=== PATIENT | female | born 1940 | race Native Hawaiian/Other Pacific Islander ===

== ENCOUNTER 2016-08-26 09:23 | Outpatient (CLI) | payer OTHER, MEDICARE | END 2016-08-26 19:37 | disposition home or self-care (01) | LOC: MAMMO 09:23 | DX: Z12.31 Encounter for screening mammogram for malignant neoplasm of breast (principal) | CPT/HCPCS: G0202-TC ==

== ENCOUNTER 2017-02-23 10:49 | Outpatient (CLI) | payer OTHER, MEDICARE | END 2017-02-23 11:50 | disposition home or self-care (01) | LOC: RAD 10:49 | DX: R05 Cough (principal); R06.02 Shortness of breath; J00 Acute nasopharyngitis [common cold] ==

== ENCOUNTER 2017-05-04 07:50 | Outpatient (CLI) | payer OTHER, MEDICARE | END 2017-05-04 19:06 | disposition home or self-care (01) | LOC: NM 07:50 | DX: R07.89 Other chest pain (principal) | CPT/HCPCS: A9500; J2785 ==

== ENCOUNTER 2017-10-18 11:16 | Outpatient (CLI) | payer OTHER, MEDICARE ==
[2017-10-18 11:49] LABS: PLATELET COUNT 295 K/uL (152-353)
[2017-10-18 11:53] LABS: POTASSIUM 3.6 mmol/L (3.6-5.2)
== END 2017-10-18 21:23 | disposition home or self-care (01) ==
LOC: LABW 11:16
PROVIDERS: Nurse Practitioner Family
DX: R06.02 Shortness of breath (principal); R09.02 Hypoxemia; R53.83 Other fatigue
CPT/HCPCS: 36415; 80053; 82607; 82746; 84443; 85027; Q9963

== ENCOUNTER 2017-11-10 08:46 | Outpatient (CLI) | payer OTHER, MEDICARE | END 2017-11-10 21:42 | disposition home or self-care (01) | LOC: MAMMO 08:46 | DX: Z12.31 Encounter for screening mammogram for malignant neoplasm of breast (principal) ==

== ENCOUNTER 2018-06-22 10:40 | Outpatient (CLI) | payer OTHER, MEDICARE | END 2018-06-22 19:28 | disposition home or self-care (01) | LOC: RAD 10:40 | DX: J40 Bronchitis, not specified as acute or chronic (principal); R05 Cough ==

== ENCOUNTER 2018-06-27 10:21 | Outpatient (CLI) | payer OTHER, MEDICARE | END 2018-06-27 22:11 | disposition home or self-care (01) | LOC: RAD 10:21 | DX: J18.9 Pneumonia, unspecified organism (principal) ==

== ENCOUNTER 2018-07-07 11:28 | Outpatient (CLI) | payer OTHER, MEDICARE | END 2018-07-07 23:30 | disposition home or self-care (01) | LOC: LABW 11:28 | DX: R06.02 Shortness of breath (principal); R06.2 Wheezing; J18.9 Pneumonia, unspecified organism; R05 Cough; J20.9 Acute bronchitis, unspecified; I10 Essential (primary) hypertension; R53.83 Other fatigue | CPT/HCPCS: 87070; 87205 ==

== ENCOUNTER 2018-12-13 10:38 | Outpatient (CLI) | payer OTHER, MEDICARE | END 2018-12-13 20:00 | disposition home or self-care (01) | LOC: RAD 10:38 | DX: M54.6 Pain in thoracic spine (principal); M54.5 Low back pain ==

== ENCOUNTER 2019-01-13 09:03 | Outpatient (CLI) | payer OTHER, MEDICARE | END 2019-01-13 23:41 | disposition home or self-care (01) | LOC: MAMMO 09:03 | DX: Z12.31 Encounter for screening mammogram for malignant neoplasm of breast (principal) ==

== ENCOUNTER 2019-07-05 08:21 | Outpatient (CLI) | payer OTHER, MEDICARE | END 2019-07-05 20:18 | disposition home or self-care (01) | LOC: US 08:21 | DX: N17.8 Other acute kidney failure (principal); I10 Essential (primary) hypertension ==

== ENCOUNTER 2019-08-07 15:20 | Outpatient (CLI) | payer OTHER, MEDICARE | END 2019-08-07 19:17 | disposition home or self-care (01) | LOC: RAD 15:20 | DX: R05 Cough (principal); R06.02 Shortness of breath; R06.2 Wheezing; J20.9 Acute bronchitis, unspecified ==

== ENCOUNTER 2019-08-21 08:39 | Outpatient (CLI) | payer OTHER, MEDICARE ==
[2019-08-21 09:24] LABS: PLATELET COUNT 366 K/uL (152-353)
== END 2019-08-21 22:46 | disposition home or self-care (01) ==
LOC: LABW 08:39
PROVIDERS: Internal Medicine
DX: N18.3 Chronic kidney disease, stage 3 (moderate) (principal)
CPT/HCPCS: 36415; 80048; 81000; 82040; 82570; 83883; 84100; 84155; 84550; 85027; 86038

== ENCOUNTER 2020-01-16 08:51 | Outpatient (CLI) | payer OTHER, MEDICARE | END 2020-01-16 20:44 | disposition home or self-care (01) | LOC: MAMMO 08:51 | DX: Z12.31 Encounter for screening mammogram for malignant neoplasm of breast (principal) ==

== ENCOUNTER 2020-06-07 18:23 | Emergency (ER) | payer OTHER, MEDICARE ==
[~2020-06-07] VITALS: Ht 157.5 cm; Wt 72.6 kg
[2020-06-07 21:40] LABS: PLATELET COUNT 303 K/uL (152-353)
[2020-06-07 21:46] LABS: POTASSIUM 4.6 mmol/L (3.6-5.2)
[2020-06-07 23:45] VITALS: BP 157/70; TEMP 98.7
== END 2020-06-07 23:45 | disposition home or self-care (01) ==
LOC: ED 18:23
PROVIDERS: Family Medicine
DX: U07.1 COVID-19 (principal); R05 Cough
CPT/HCPCS: 80053; 85027; 87502; 87635; 87651; 99283; U0003

== ENCOUNTER 2020-06-14 09:09 | Inpatient (IN) | payer OTHER, MEDICARE ==
[~2020-06-14] VITALS: Ht 157.5 cm; Wt 70.8 kg
[2020-06-14] VITALS (19 sets, daily range): BP systolic 95–143; BP diastolic 34–88; TEMP 97.1–99.3; Ht 157.5 cm; Wt 70.8 kg
[2020-06-14 11:09] LABS: PLATELET COUNT 268 K/uL (152-353)
[2020-06-14 11:41] LABS: POTASSIUM 3.4 mmol/L (3.6-5.2); SODIUM 129 mmol/L (136-145)
[2020-06-15] VITALS: BP 136/77; TEMP 98.5
[2020-06-15] MEDS ORDERED: ELIQUIS5 MG PO (02:06)
[2020-06-15 04:00] VITALS: BP 116/65; TEMP 99.3
[2020-06-15 06:00] LABS: PLATELET COUNT 265 K/uL (152-353)
[2020-06-15 06:46] LABS: POTASSIUM 3.9 mmol/L (3.6-5.2)
[2020-06-15 08:00] VITALS: BP 124/68; TEMP 99.1
[2020-06-15 16:00] VITALS: BP 123/63; TEMP 99.3
[2020-06-15 20:00] VITALS: BP 124/65; TEMP 99.4
[2020-06-15 23:56] VITALS: BP 129/69; TEMP 99.7
[2020-06-16] MEDS ORDERED: METOPROLOL25 M1 PO (03:51)
[2020-06-16] MEDS ORDERED: SIMV20TA2 PO (03:51)
[2020-06-16] MEDS ORDERED: ALPR0.5T24 PO (03:52)
[2020-06-16] MEDS ORDERED: BREO ELLIPTA 101 INH PO (03:52)
[2020-06-16] MEDS ORDERED: AMLO2.5T PO (03:53)
[2020-06-16] MEDS ORDERED: CYCLOBENZAPRINE5 MG PO (03:54)
[2020-06-16 04:00] VITALS: BP 132/73; TEMP 98.8
[2020-06-16 06:02] LABS: PLATELET COUNT 287 K/uL (152-353)
[2020-06-16 06:17] LABS: POTASSIUM 4.2 mmol/L (3.6-5.2)
[2020-06-16 08:00] VITALS: BP 131/55; TEMP 99.1
[2020-06-16 12:00] VITALS: BP 132/71; TEMP 99
[2020-06-16 16:00] VITALS: BP 137/67; BP 160/82; TEMP 98.6
[2020-06-16] MEDS ORDERED: OMEPRAZOLE40 MG PO (17:03)
[2020-06-16 20:00] VITALS: BP 183/87; TEMP 98.6
[2020-06-17] VITALS (7 sets, daily range): BP systolic 110–164; BP diastolic 54–77; TEMP 97.9–98.6
[2020-06-17] MEDS ORDERED: LISITAB PO (05:41)
[2020-06-17 06:51] LABS: PLATELET COUNT 304 K/uL (152-353)
[2020-06-17 07:23] LABS: POTASSIUM 4.1 mmol/L (3.6-5.2)
[2020-06-18] VITALS (60 sets, daily range): BP systolic 64–206; BP diastolic 36–109; TEMP 96.8–101
[2020-06-18 07:01] LABS: POTASSIUM 4.3 mmol/L (3.6-5.2)
[2020-06-18 07:16] LABS: PLATELET COUNT 181 K/uL (152-353)
[2020-06-19] VITALS (23 sets, daily range): BP systolic 111–158; BP diastolic 47–88; TEMP 96.8–98.3
[2020-06-19 07:05] LABS: PLATELET COUNT 105 K/uL (152-353)
[2020-06-19 07:18] LABS: POTASSIUM 3.6 mmol/L (3.6-5.2)
[2020-06-20] VITALS (22 sets, daily range): BP systolic 123–165; BP diastolic 59–92; TEMP 97–98.8
[2020-06-20 05:27] LABS: PLATELET COUNT 179 K/uL (152-353)
[2020-06-20 06:07] LABS: POTASSIUM 3.6 mmol/L (3.6-5.2)
[2020-06-21] VITALS (32 sets, daily range): BP systolic 11–150; BP diastolic 53–92; TEMP 98–100
[2020-06-21 05:53] LABS: PLATELET COUNT 244 K/uL (152-353)
[2020-06-21 06:09] LABS: POTASSIUM 3.3 mmol/L (3.6-5.2)
[2020-06-22] VITALS (25 sets, daily range): BP systolic 84–150; BP diastolic 56–69; TEMP 97.4–100.6
[2020-06-22 05:29] LABS: PLATELET COUNT 237 K/uL (152-353)
[2020-06-22 06:36] LABS: POTASSIUM 4.8 mmol/L (3.6-5.2)
[2020-06-23] VITALS (24 sets, daily range): BP systolic 13–111; BP diastolic 40–109; TEMP 98.1–99.5
[2020-06-23 06:15] LABS: PLATELET COUNT 231 K/uL (152-353)
[2020-06-23 07:05] LABS: POTASSIUM 4.9 mmol/L (3.6-5.2)
[2020-06-24] VITALS (38 sets, daily range): BP systolic 88–977; BP diastolic 22–65; TEMP 97.8–100.2
[2020-06-24 06:47] LABS: POTASSIUM 5.3 mmol/L (3.6-5.2)
[2020-06-24 07:08] LABS: PLATELET COUNT 165 K/uL (152-353)
[2020-06-25] VITALS (77 sets, daily range): BP systolic 113–180; BP diastolic 41–79; TEMP 97.6–99.2
[2020-06-25 06:21] LABS: PLATELET COUNT 257 K/uL (152-353)
[2020-06-25 06:23] LABS: POTASSIUM 4.5 mmol/L (3.6-5.2)
[2020-06-26] VITALS (23 sets, daily range): BP systolic 105–150; BP diastolic 47–71; TEMP 97.8–99.1
[2020-06-26 05:41] LABS: PLATELET COUNT 149 K/uL (152-353)
[2020-06-26 06:06] LABS: POTASSIUM 5.2 mmol/L (3.6-5.2)
[2020-06-26 10:08] LABS: PLATELET COUNT 117 K/uL (152-353)
[2020-06-26 15:23] LABS: PLATELET COUNT 154 K/uL (152-353)
[2020-06-27] VITALS (24 sets, daily range): BP systolic 121–152; BP diastolic 50–601; TEMP 97.6–99.1
[2020-06-27 03:43] LABS: PLATELET COUNT 138 K/uL (152-353)
[2020-06-27 03:49] LABS: POTASSIUM 5.4 mmol/L (3.6-5.2)
[2020-06-28] VITALS (23 sets, daily range): BP systolic 125–180; BP diastolic 53–88; TEMP 97.8–99
[2020-06-28 04:25] LABS: PLATELET COUNT 122 K/uL (152-353)
[2020-06-28 04:39] LABS: POTASSIUM 5.8 mmol/L (3.6-5.2)
[2020-06-29] VITALS (25 sets, daily range): BP systolic 128–177; BP diastolic 63–676; TEMP 98.9–99.4
[2020-06-29 05:25] LABS: PLATELET COUNT 119 K/uL (152-353)
[2020-06-29 06:15] LABS: POTASSIUM 5.7 mmol/L (3.6-5.2)
[2020-06-30] VITALS (24 sets, daily range): BP systolic 116–174; BP diastolic 42–89; TEMP 98.4–100.9
[2020-06-30 06:12] LABS: PLATELET COUNT 110 K/uL (152-353)
[2020-06-30 06:58] LABS: POTASSIUM 5.4 mmol/L (3.6-5.2)
[2020-07-01] VITALS: BP 117/48; TEMP 99.5
[2020-07-01 01:00] VITALS: BP 127/43
== END 2020-07-01 03:58 | disposition expired | DRG 207 ==
LOC: ED 09:09 → MED/SURG 15:08 → ICU 06-18 03:10
PROVIDERS: Family Medicine; Internal Medicine Endocrinology, Diabetes & Metabolism; ADMIT Internal Medicine; ATTEND Internal Medicine
PROC: 0W9900Z Drainage of Right Pleural Cavity with Drainage Device, Open Approach (ICD-10-PCS; principal; 2020-06-18)
PROC: 5A1955Z Respiratory Ventilation, Greater than 96 Consecutive Hours (ICD-10-PCS; 2020-06-18)
PROC: 02HV33Z Insertion of Infusion Device into Superior Vena Cava, Percutaneous Approach (ICD-10-PCS; 2020-06-18)
PROC: B548ZZA Ultrasonography of Superior Vena Cava, Guidance (ICD-10-PCS; 2020-06-18)
PROC: 0BH17EZ Insertion of Endotracheal Airway into Trachea, Via Natural or Artificial Opening (ICD-10-PCS; 2020-06-18)
PROC: 0W9900Z Drainage of Right Pleural Cavity with Drainage Device, Open Approach (ICD-10-PCS; 2020-06-30)
DX: U07.1 COVID-19 (principal); J96.01 Acute respiratory failure with hypoxia; J12.89 Other viral pneumonia; E87.1 Hypo-osmolality and hyponatremia; J93.83 Other pneumothorax; B37.49 Other urogenital candidiasis; I10 Essential (primary) hypertension; K21.9 Gastro-esophageal reflux disease without esophagitis; Z86.711 Personal history of pulmonary embolism
CPT/HCPCS: 36415; 36591; 36600; 80053; 80061; 80202; 81000; 82805; 83605; 83735; 84484; 85027; 87040; 87070; 87077; 87086; 87088; 87185; 87186; 93005; 94002; 94003; 94640; 94664; 94667; 94668; 94760; 96365; 96375; 99284; C1751; J0132; J0330; J0456; J0713; J1100; J1650; J1815; J1885; J1940; J1956; J2250; J2704; J2930; J3010; J3020; J3370; J3490; P9047